=== PATIENT | male | born 1955 | race Caucasian/White ===

== ENCOUNTER 2017-06-24 10:13 | Day surgery (SDC) | payer BC ==
[~2017-06-24 10:13] MED LIST: ACETAMINOPHEN 1,000 MG/100 ML BTL IV ONE; CELECOXIB 100 MG CAPSULE PO ONE; FAMOTIDINE 20MG TABLET PO ONE; MECLIZINE 25 MG TABLET PO ONE; METOCLOPRAMIDE 10 MG TABLET PO ONE; VANCOMYCIN HCL 1,000 MG in 0.9 % SODIUM CHLORIDE 250ML 250 ML IVPB ONE
[2017-06-24] MEDS ORDERED: FENTANYL PF 100MCG/2ML VIAL IV ONE (10:14)
[2017-06-24] MEDS ORDERED: MIDAZOLAM HCL 2MG/2ML VIAL IV ONE (10:14)
[2017-06-24] MEDS ORDERED: BUPIVACAINE LIPOSOME 266MG/20ML VIAL IV ONE (10:14)
[2017-06-24] MEDS ORDERED: VANCOMYCIN HCL 1 GM VIAL IVPB ONE ×2 (10:14)
[2017-06-24] MEDS ORDERED: *PACU ONLY* KETAMINE HCL 10 MG/ML (20ML) VIAL IV ONE (10:14)
[2017-06-24] MEDS ORDERED: PROPOFOL 10 MG/ML VIAL IV ONE (10:14)
[2017-06-24] MEDS ORDERED: BUPIVACAINE 0.5% W/EPI MPF 30 ML VIAL IVP ONE (10:14)
[2017-06-24] MEDS ORDERED: TRANEXAMIC ACID 1,000 MG/10 ML ML IV ONE (10:14)
[2017-06-24 11:09] LABS: ABO GROUP O; ANTIBODY SCREEN NEGATIVE (NEGATIVE); RH TYPE POSITIVE
[2017-06-24] MEDS ORDERED: KETOROLAC 30 MG/ML VIAL IVP PRN ×2 (12:30)
[2017-06-24] MEDS ORDERED: ACETAMINOPHEN W/ CODEINE 300MG/30MG TABLET PO PRN ×2 (12:30)
[2017-06-24] MEDS ORDERED: BISACODYL 10 MG SUPP RC PRN (12:30)
[2017-06-24] MEDS ORDERED: DIPHENHYDRAMINE HCL 25 MG CAPSULE PO PRN (12:30)
[2017-06-24] MEDS ORDERED: PROMETHAZINE HCL 25 MG TABLET PO PRN (12:30)
[2017-06-24] MEDS ORDERED: ONDANSETRON 4 MG ODT TABLET SL PRN (12:30)
[2017-06-24] MEDS ORDERED: TRAMADOL HCL 50 MG TABLET PO PRN ×2 (12:30)
[2017-06-24] MEDS ORDERED: ACETAMINOPHEN W/ CODEINE 300MG/60MG TABLET PO PRN ×2 (12:30)
[2017-06-24] MEDS ORDERED: MAGNESIUM HYDROXIDE 30 ML UDC PO PRN (12:30)
[2017-06-24] MEDS ORDERED: HYDROCODONE/APAP 7.5/325MG TABLET PO PRN ×2 (12:30)
[2017-06-24] MEDS ORDERED: AL HYDROX/MAG HYDROX 30ML UD PO PRN (12:30)
[2017-06-24] MEDS ORDERED: NALOXONE 0.4 MG/1 ML VIAL IVP PRN (12:30)
[2017-06-24] MEDS ORDERED: METOCLOPRAMIDE 10 MG TABLET PO PRN (12:30)
[2017-06-24] MEDS ORDERED: HYDROCODONE/APAP 5/325MG TABLET PO PRN ×2 (12:30)
[2017-06-24] MEDS ORDERED: ACETAMINOPHEN 325 MG TAB PO PRN (12:30)
[2017-06-24] MEDS ORDERED: VANCOMYCIN HCL 500 MG in 0.9 % SODIUM CHLORIDE 100ML 100 ML IVPB SCH (15:30)
[2017-06-24] MEDS ORDERED: DEXTROSE 5 % AND 0.9 % NACL 1,000 ML IV PRN (17:00)
--- NOTE | 2017-06-24 17:40 | Rehab Evaluation ---
Patient Information - Patient Information Diagnosis: Right Total Knee arthroplasty Ordered Treatment: OT Evaluate and Treat Status: Initial Evaluation Surgery: Yes Date of Surgery: 06/24/17 Past Medical/Surgical Hx: PAST MEDICAL/SURGICAL HISTORY Past Surgical History cochlear implant right ear hernia repair right shoulder sx tonsils PMH - Respiratory Hx Respiratory Disorders Yes Hx Sleep Apnea Yes Hx of CPAP No Comment: allergies PMH - Cardiovascular Hx Cardiovascular Disorders Yes Hx Hypertension Yes: on meds great control Exercise Tolerance Good PMH - Neuro Hx Neurological Disorders No PMH - GI Hx Gastrointestinal Disorders No PMH - Hx Genitourinary Disorders No PMH - Endocrine Hx Endocrine Disorders No PMH - Musculoskeletal Hx Musculoskeletal Disorders Yes Hx Arthritis Yes PMH - Psych Hx Psychiatric Problems Yes Hx Anxiety Yes PMH - Hematology/Oncology Hx Hematology/Oncology No Disorders Premorbid Status: Detail (Ind all I/ADL's.) Social History: Detail (Pt. lives in a ranch style home (1 floor, no stairs). Bathroom is equipped with tub/shower entry with shower chair and HH shower head. Pt. has a standard walker. Pt. lives with his , who is an RN and will be able to assist prn. 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 Pt. reported hx of R shd RTC repair 1.5 yrs ago with no functional limitations.) - Coordination Appears within normal limits for therapeutic activities (BUE) - Bed Mobility Independent - Transfers Independent (EOB<>standard walker) - Balance Balance Sitting: Good Balance Standing: Fair - Sensation Intact (BUE) - ADL's/IADL's Detail (PT. demo. ability to doff sock seated EOB; required min. assist to don RLE. Educ. provided to ask for help if needed during recovery process. Educ. provided in AE and where to obtain if needed. Educ. provided in adaptive dressing technques. Pt. verbalized understanding, and described plan/strategy for dressing and bathing.) Therapy Assessment - Therapy Assessment Detail (Pt. demo. knowledge and independence in ADL skills and has a positive support system, with help available if needed. Pt. will have home care when initially arriving at home. In pt. OT services not recommended at this time.) Patient Education - Patient Education Teaching Topic: Equipment Use (storage worker, sock aid) Response: Verbalize Understanding Teaching Method: Discussion, Demonstration Teaching Recipient: Patient Barriers To Learning: None Prognosis - Prognosis Good Plan - Plan Occupational Therapy Plan: D/C from OT services. Pt. was educ. to call rehab dept. if any questions/concerns arise.
--- NOTE | 2017-06-24 17:49 | Rehab Evaluation ---
Patient Information - Patient Information Diagnosis: Right Total Knee arthroplasty Ordered Treatment: PT Evaluate and Treat Status: Initial Evaluation Surgery: Yes Date of Surgery: 06/24/17 Past Medical/Surgical Hx: PAST MEDICAL/SURGICAL HISTORY Past Surgical History cochlear implant right ear hernia repair right shoulder sx tonsils PMH - Respiratory Hx Respiratory Disorders Yes Hx Sleep Apnea Yes Hx of CPAP No Comment: allergies PMH - Cardiovascular Hx Cardiovascular Disorders Yes Hx Hypertension Yes: on meds great control Exercise Tolerance Good PMH - Neuro Hx Neurological Disorders No PMH - GI Hx Gastrointestinal Disorders No PMH - Hx Genitourinary Disorders No PMH - Endocrine Hx Endocrine Disorders No PMH - Musculoskeletal Hx Musculoskeletal Disorders Yes Hx Arthritis Yes PMH - Psych Hx Psychiatric Problems Yes Hx Anxiety Yes PMH - Hematology/Oncology Hx Hematology/Oncology No Disorders Premorbid Status: Detail (Ind all I/ADL's.) Social History: Detail (Pt. lives in a ranch style home (1 floor, no stairs). Bathroom is equipped with tub/shower entry with shower chair and HH shower head. Pt. has a standard walker. Pt. lives with his , who is an RN and will be able to assist prn. 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 RLE hip and ankle AROM were WNL, knee flexion was 90 degrees, extension 0 .) - Strength/Tone Not within normal limits (The patient's L LE strength was 5/5. R LE strength was not tested secondary to status post surgery , however strength was functional ( The patient was able to complete a SLR).) - Coordination Appears within normal limits for therapeutic activities - Bed Mobility Independent (The patient was independent with supine to and from sit transfer and scooting up in bed.) - Transfers Independent (Independent with sit to and from stand transfer.) - Balance Balance Sitting: Good Balance Standing: Good - Sensation Intact - Gait Detail (The patient ambulated with standard walker WBAT on the R LE, independently. The patient required occasional verbal cues for proper walker placement. The patient ambulated on 3 steps with folded walker and railing WBAT on the R LE with supervision for safety.) Therapy Assessment - Therapy Assessment Detail (The patient was independent with all mobility, ambulation on levels and stairs and transfers. The patient has met all his inpatient PT goals.) Patient Education - Patient Education Teaching Topic: Exercise/Activity (The patient recalled all of his HEP including : gluteal sets, quad sets, hamstring sets, SLR, seated heel slides, ankle pumps all x 5 reps.) Response: Return Demonstration Teaching Method: Demonstration Teaching Recipient: Patient Barriers To Learning: None Problem List - Problem List Physical Therapy Problem List: Detail (The patient has decreased R knee AROM and strength as to be expected following surgery.) Goals - Goals Physical Therapy Goals: The patient has met all PT inpatient goals: independent with ambulation on levels and stairs, transfers and bed mobility. Prognosis - Prognosis Good Plan - Plan Physical Therapy Plan: The patient has completed all inpatient PT goals and is to receive Home Health services.
--- NOTE | 2017-06-24 21:22 | Operative Note ---
DATE OF SURGERY: 06/24/17 PREOPERATIVE DIAGNOSIS: End-stage right knee arthrosis. POSTOPERATIVE DIAGNOSIS: End-stage right knee arthrosis. PROCEDURE: Right total knee arthroplasty. SURGEON: Jonny Rao MD ANESTHESIA: Spinal. Mónica Suarez CRNA COMPLICATIONS: None. BLOOD LOSS: Minimal. OPERATIVE FINDINGS: Severe [id number] varus knee arthrosis. COMPONENTS PLACED: 2 gm Vancomycin cement, [employer] II Oxinium size 7 femoral component, size 7 tibial base plate, a 13 mm thick tibial poly insert, and a 35 mm cemented patellar component. INDICATION FOR OPERATION: This is a 62-year-old male who has had persistent pain and dysfunction in his knees for several years. He failed nonoperative treatment and is scheduled for outpatient total knee arthroplasty. I explained the risks and benefits in detail for the diagnosis and procedures including but not limited to infection, nerve injury, vessel injury, persistent pain and stiffness, numbness and tingling in his knee, periprosthetic fracture, need for resection arthroplasty should the components become infected or loosened, nerve injury, blood clot, need for anticoagulation to prevent blood clots, and risks associated with these medications, need for further procedures and all of his questions were answered and rehab and healing courses were outlined and he agreed to the procedure. PROCEDURE: The patient was brought into the O.R. and placed in the supine position. Preoperative antibiotics were given prior to surgery. Spinal anesthesia induced and his right lower extremity was prepped and draped in sterile fashion. The right knee was prepped again with ChloraPrep after it was draped. Intraoperative time-out was performed. Next, the leg was exsanguinated with an Esmarch. The knee was flexed and the tourniquet inflated to 250 mmHg of pressure. Next, the skin and subcutaneous tissues were dissected down, incised the capsule medially around the medial border of the patella to the tibial tubercle , incised the vastus medialis in line with its fibers in the mid vastus approach. Partially resected the retropatellar fat pad, elevated the capsule subperiosteallly medially in the severe varus knee and then flexed the knee, brought it two bent Hohmann's. He had severe [id number] medial compartment arthrosis. We drilled and intercondylar drill hole and inserted the intramedullary guide susy with a six-degree cutting block, aligned the distal femoral condyles, and then pinned it in place with two pins in the +2 cutting position. Next, I cut the distal femoral condyle. Next, we placed the sizing jig on the distal femoral condyle, sized it to be right on size 7 and through the previously placed pin holes, we placed the five- in-one cutting jig and dialed in the anterior cut so it would come out flush without notching. We cut that cut. It was a good cut. We then pinned the cutting jig and cut the remainder of the chamfer cuts in the usual fashion. Next, we then inserted the trial component. It fit nicely. We then pinned it in place and started the femoral resection collet and reamed out and box osteotomed the cruciate bone block. Next, attention was turned to the tibia. We seated the spikes in the intertubercular groove two fingerbreadths distal to the anterior tibial cortex. We referenced for a 7 mm cut of the higher lateral plateau. We pinned the cutting jig in position and checked our resection level. It was just cutting the medial eroded tibial cortex on our tibial plateau nicely. We then pinned it in place, rechecked the alignment of the cuts with a drop susy centered on the tibial anatomic access, cross-pinned it to the cutting jig completing its fixation and then cut the tibia. Next, we removed the osteophytes off the posterior femoral condyles, checked flexion and extension gaps. He had symmetric flexion and extension gaps with a 9 mm thick poly insert. This allowed 2 to 3 mm of varus/valgus laxity in flexion and extension. After we released significant medially, we sized up to a 13 mm insert and overall alignment of cuts in extension was in intact valgus orientation with the alignment susy centered on the hip joint and ankle joint. Next, we took the knee into flexion. We sized the tibial baseplate to a 7. We replaced all the trial components, set the rotation of the tibial baseplate again in extension using the alignment susy to center the hip joint and ankle joint. W marked with electrocautery mckee on the anterior tibial cortex off the laer mckee on the tibial baseplate. Attention was turned to the patella. We measured the patella to be 25 mm. We set the cutting jig at 16 mm to allow for a 9 mm thick poly insert. We cut the patella. It was right on 16. We chamfered off the lateral patellar facet, sized to be 35 and medialized as much as possible, drilled three peg holes. We placed the trial patellar component and then mixed cement. The patella tracked nicely hands-free, had full extension and flexion to 140 degrees and again, symmetrical flexion and extension gaps. Next, we took the knee into flexion. We set the tibial baseplate over the previously placed electrocautery mckee, pinned it in place and reamed out and keel-punched the keel hole. Next, we placed a bone plug in the femoral canal hole. Next, we then placed the drill bit in the tibial keel hole. Changed gloves, brought in clean sheet, copiously irrigated the bony surfaces with pulse lavage and antibiotic solution. We pre-coated both surfaces and impacted down the tibial component and then the femoral component, and then clamped down the patellar component and held the knee in extension until the cement hardened. Once that happened, we then took the knee into flexion, distracted the knee with hook and sponge, removed the trial poly insert. I removed any excess cement off the edge of the components and then we irrigated copiously. Then we injected thoroughly the capsule posterior, medial, and lateral, the periosteum medial and lateral, and vastus medialis with our mixture of 0.5% Marcaine with Epinephrine, 2 gm Tranexamic acid, and Exparel throughout the entire knee with several sticks. Infiltrating. Next, we then impacted down the real tibial poly insert, verified it was interlocked medially and laterally with final range of motion and stability the same. We irrigated again. We closed the capsule in flexion with a running #2 Quill suture in the vastus split. We irrigated again and then closed the skin deep with 2-0 Vicryl and ZipLine used to close the skin. The patient tolerated the procedure well. No intraoperative complications. Sponge, needle, and blade counts correct. Recovery Room stable. Can be discharged as an outpatient and he will follow-up in two weeks. cc: Dr. Jake Joaquin JOB NUMBER: [id number] MTDD
[2017-06-24] MEDS ORDERED: DOCUSATE SODIUM 100 MG CAPSULE PO SCH (22:00)
== END 2017-06-24 19:35 | disposition home or self-care (01) ==
LOC: SUR 10:13 → MEDSURG 15:15 → SUR 19:35
PROVIDERS: ATTEND Orthopaedic Surgery
DX: M17.11 Unilateral primary osteoarthritis, right knee (principal); I10 Essential (primary) hypertension; Z72.0 Tobacco use
CPT/HCPCS: 27447; 01402; 86900; 86901; 86850; J1885; J3370; J3010; C9290; J3490; 97165; J7050

== ENCOUNTER 2017-08-19 11:04 | Inpatient (IN) | payer BC ==
[~2017-08-19 11:04] MED LIST changes: -VANCOMYCIN HCL 1,000 MG in 0.9 % SODIUM CHLORIDE 250ML 250 ML IVPB ONE; +VANCOMYCIN HCL 1,000 MG in DEXTROSE 5 % IN WATER 250 ML IVPB ONE
[2017-08-19] MEDS ORDERED: TRAMADOL HCL 50 MG TABLET PO PRN ×3 (11:59→15:48)
[2017-08-19] MEDS ORDERED: MAGNESIUM HYDROXIDE 30 ML UDC PO PRN ×2 (11:59→15:48)
[2017-08-19] MEDS ORDERED: METOCLOPRAMIDE 10 MG TABLET PO PRN (11:59)
[2017-08-19] MEDS ORDERED: ACETAMINOPHEN W/ CODEINE 300MG/30MG TABLET PO PRN ×4 (11:59→15:48)
[2017-08-19] MEDS ORDERED: AL HYDROX/MAG HYDROX 30ML UD PO PRN ×2 (11:59→15:48)
[2017-08-19] MEDS ORDERED: ACETAMINOPHEN 325 MG TAB PO PRN ×2 (11:59→15:48)
[2017-08-19] MEDS ORDERED: DEXTROSE 5 % AND 0.9 % NACL 1,000 ML IV PRN ×2 (11:59→15:48)
[2017-08-19] MEDS ORDERED: HYDROCODONE/APAP 7.5/325MG TABLET PO PRN ×3 (11:59→15:48)
[2017-08-19] MEDS ORDERED: ACETAMINOPHEN W/ CODEINE 300MG/60MG TABLET PO PRN ×4 (11:59→15:48)
[2017-08-19] MEDS ORDERED: PROMETHAZINE HCL 25 MG TABLET PO PRN (11:59)
[2017-08-19] MEDS ORDERED: KETOROLAC 30 MG/ML VIAL IVP PRN ×4 (11:59→15:48)
[2017-08-19] MEDS ORDERED: ONDANSETRON 4 MG ODT TABLET SL PRN (11:59)
[2017-08-19] MEDS ORDERED: BISACODYL 10 MG SUPP RC PRN ×2 (11:59→15:48)
[2017-08-19] MEDS ORDERED: NALOXONE 0.4 MG/1 ML VIAL IVP PRN ×2 (11:59→15:48)
[2017-08-19] MEDS ORDERED: DIPHENHYDRAMINE HCL 25 MG CAPSULE PO PRN (11:59)
[2017-08-19] MEDS ORDERED: HYDROCODONE/APAP 5/325MG TABLET PO PRN ×4 (11:59→15:48)
[2017-08-19] MEDS ORDERED: VANCOMYCIN HCL 500 MG in 0.9 % SODIUM CHLORIDE 100ML 100 ML IVPB SCH (12:00)
[2017-08-19] MEDS ORDERED: VANCOMYCIN HCL 1 GM VIAL IVPB ONE (13:00)
[2017-08-19] MEDS ORDERED: TRANEXAMIC ACID 1,000 MG/10 ML ML IV ONE (13:00)
[2017-08-19] MEDS ORDERED: BUPIVACAINE 0.75% W/EPI MPF 30ML VIAL IVP ONE (13:00)
[2017-08-19] MEDS ORDERED: BUPIVACAINE LIPOSOME 266MG/20ML VIAL IV ONE (13:00)
[2017-08-19] MEDS ORDERED: ONDANSETRON HCL IV 4 MG/2 ML VIAL IVP PRN (15:48)
[2017-08-19] MEDS ORDERED: MORPHINE SULFATE 5 MG/ML PFS IVP PRN ×4 (15:48)
[2017-08-19] MEDS ORDERED: METOCLOPRAMIDE HCL 10 MG/2 ML VIAL IVP PRN (15:48)
[2017-08-19] MEDS ORDERED: ZOLPIDEM TARTRATE 5 MG TABLET PO PRN (15:48)
[2017-08-19] MEDS ORDERED: PROMETHAZINE HCL 12.5 MG in 0.9 % SODIUM CHLORIDE 100ML 50 ML IVPB PRN (15:48)
[2017-08-19] MEDS: HYDROCODONE/APAP 7.5/325MG TABLET PO PRN ×2 (17:26→21:29)
[2017-08-19] MEDS: FERROUS SULFATE 325 MG TAB PO SCH (21:29)
[2017-08-19] MEDS: DOCUSATE SODIUM 100 MG CAPSULE PO SCH (21:29)
[2017-08-19] MEDS ORDERED: DOCUSATE SODIUM 100 MG CAPSULE PO SCH (22:00)
[2017-08-20] MEDS: VANCOMYCIN HCL 1,000 MG in DEXTROSE 5 % IN WATER 250 ML IVPB SCH ×4 (01:01→14:30)
[2017-08-20] MEDS: HYDROCODONE/APAP 7.5/325MG TABLET PO PRN ×5 (02:56→18:45)
[2017-08-20] MEDS: DIPHENHYDRAMINE HCL 25 MG CAPSULE PO PRN ×2 (06:32→13:31)
[2017-08-20 06:39] LABS: HEMATOCRIT 36.9 % (42.0-52.0); HEMOGLOBIN 11.6 gm/dl (14.0-18.0)
[2017-08-20] MEDS: HYDROMORPHONE HCL 1 MG/ML SYRINGE IM PRN ×2 (08:37→09:23)
--- NOTE | 2017-08-20 09:56 | Rehab Evaluation ---
Patient Information - Patient Information Diagnosis: L TKA Ordered Treatment: PT Evaluate and Treat Status: Initial Evaluation Surgery: Yes Date of Surgery: 08/19/17 History: Detail (The patient underwent a R TKA 6 weeks ago.) Past Medical/Surgical Hx: PAST MEDICAL/SURGICAL HISTORY Surgery to Affected Area? No Recent Surgery? Past Surgical History cochlear implant hernia repair right shoulder sx PMH - Respiratory Hx Respiratory Disorders Yes Hx Sleep Apnea Yes Hx of CPAP No Comment: allergies PMH - Cardiovascular Hx Cardiovascular Disorders Yes Hx Hypertension Yes: on meds great control PMH - Neuro Hx Neurological Disorders No PMH - GI Hx Gastrointestinal Disorders No PMH - Hx Genitourinary Disorders No PMH - Endocrine Hx Endocrine Disorders No PMH - Musculoskeletal Hx Musculoskeletal Disorders Yes Hx Arthritis Yes PMH - Psych Hx Psychiatric Problems Yes Hx Anxiety Yes PMH - Hematology/Oncology Hx Hematology/Oncology No Disorders Premorbid Status: Detail (Prior to surgery the patient was independent with ambulation without device.) Social History: Detail (The patient lives in a one story home with with no stairs at the enterance. The patient's bathroom is equipped with a traditional tub with a tub seat, and standard toilet. The patient has a wheeled walker and a standard walker and a standard cane.) Precautions: [place], Other (WBAT on the L LE.) - Time With Patient Total Time Spent With Patient (Min): 30 Treatment Procedures: Detail (Initial Evaluation , gait training.) Subjective Information - Subjective Information Per Patient (The patient complained of L knee pain but did not rate it using the 0-10 pain scale.) Objective Data - Mental Status Patient Orientation: Oriented x3 - Visual Perception Appears within normal limits for therapeutic activities - ROM Not within normal limits (The patient's R LE is WNL, L hip and ankle AROM is WNL , knee flexion was to 80 degrees, extension aprox. 0 degrees.) - Strength/Tone Within normal limits (The patient's bilateral LE strength is WFL.) - Bed Mobility Independent (The patient is Independent with supine to sit and scooting up in bed.) - Transfers Independent (The patient is independent with sit to and from stand and toilet transfer.) - Balance Balance Sitting: Good Balance Standing: Good - Sensation Intact - Gait Detail (The patient ambulated independently with standard walker WBAT L LE a distance of 140 feet x 1. The patient refused ambulation on stairs.) Therapy Assessment - Therapy Assessment Detail (The patient was independent with all bed mobility , transfers and gait training. The patient was independent with HEP.) Patient Education - Patient Education Teaching Topic: Exercise/Activity (The patient was able to recite all TKA exercises.) Response: Return Demonstration Teaching Method: Handout Teaching Recipient: Patient Barriers To Learning: Age Related Problem List - Problem List Physical Therapy Problem List: Detail (Decreased L knee AROM and strength) Goals - Goals Physical Therapy Goals: All inpatient PT goals have been met. The patient is independent with transfers, ambulation and HEP. Prognosis - Prognosis Good Plan - Plan Physical Therapy Plan: The patient is discharged from inpatient PT due to all PT goals are met. The patient is to receive Home PT.
--- NOTE | 2017-08-20 10:28 | Rehab Evaluation ---
Patient Information - Patient Information Diagnosis: L TKA Ordered Treatment: OT Evaluate and Treat Status: Initial Evaluation Surgery: Yes (left TKA) Date of Surgery: 08/19/17 History: Detail (The patient underwent a R TKA 6 weeks ago.) Past Medical/Surgical Hx: PAST MEDICAL/SURGICAL HISTORY Surgery to Affected Area? No Recent Surgery? Past Surgical History cochlear implant hernia repair right shoulder sx PMH - Respiratory Hx Respiratory Disorders Yes Hx Sleep Apnea Yes Hx of CPAP No Comment: allergies PMH - Cardiovascular Hx Cardiovascular Disorders Yes Hx Hypertension Yes: on meds great control PMH - Neuro Hx Neurological Disorders No PMH - GI Hx Gastrointestinal Disorders No PMH - Hx Genitourinary Disorders No PMH - Endocrine Hx Endocrine Disorders No PMH - Musculoskeletal Hx Musculoskeletal Disorders Yes Hx Arthritis Yes PMH - Psych Hx Psychiatric Problems Yes Hx Anxiety Yes PMH - Hematology/Oncology Hx Hematology/Oncology No Disorders Premorbid Status: Detail (Prior to surgery the patient was independent with ambulation without device.) Social History: Detail (The patient lives in a one story home with with no stairs at the entrance. The patient's bathroom is equipped with a tub/shower combination with a tub seat and hand held shower, and standard height toilet. The patient has a wheeled walker, a standard walker, a commode, an extended tub bench and a standard cane. He is Ind with laundry and he and his share home mgmt and meal prep.) Precautions: [place], Other (WBAT on the L LE.) - Time With Patient Total Time Spent With Patient (Min): 30 Treatment Procedures: Detail (OT eval low complexity) Subjective Information - Subjective Information Per Patient Objective Data - Pain Pain Present: Yes (5/10) - Mental Status Patient Orientation: Oriented x3 - Visual Perception Appears within normal limits for therapeutic activities (Pt wears glasses) - ROM Within normal limits (Joenl UE AROM WNL) - Strength/Tone Within normal limits (Jonel UE strength WNL) - Coordination Appears within normal limits for therapeutic activities - Transfers Independent (Pt is Ind with sit to stand from EOB) - Balance Balance Sitting: Good Balance Standing: Good - Sensation Intact - Gait Detail (Pt ambulating in the room with 2 wheeled walker Indly.) - ADL's/IADL's Detail (Pt verbalized modified dressing technique. He does not feel the need to complete dressing activity as he has just had his other knee replaced and he understands the technique.) Therapy Assessment - Therapy Assessment Detail (Pt verbalizes understanding of modified dressing technique and he feels confident with ADLs after discharge.) Problem List - Problem List Physical Therapy Problem List: Detail (Decreased L knee AROM and strength) Occupational Therapy Problem List: Detail (No current OT problems identified.) Goals - Goals Physical Therapy Goals: All inpatient PT goals have been met. The patient is independent with transfers, ambulation and HEP. Occupational Therapy Goals: No current OT goals identified. Prognosis - Prognosis Good Plan - Plan Physical Therapy Plan: The patient is discharged from inpatient PT due to all PT goals are met. The patient is to receive Home PT. Occupational Therapy Plan: No further IP OT recommended. Thank you for this referral.
[2017-08-20] MEDS ORDERED: BUPIVACAINE 0.75% W/EPI MPF 30ML VIAL IVP ONE (10:33)
[2017-08-20] MEDS ORDERED: TRANEXAMIC ACID 1,000 MG/10 ML ML IV ONE (10:33)
[2017-08-20] MEDS ORDERED: VANCOMYCIN HCL 1 GM VIAL IVPB ONE (10:33)
[2017-08-20] MEDS: CELECOXIB 100 MG CAPSULE PO SCH (10:38)
[2017-08-20] MEDS: DOCUSATE SODIUM 100 MG CAPSULE PO SCH ×2 (10:38→22:18)
[2017-08-20] MEDS: FERROUS SULFATE 325 MG TAB PO SCH ×2 (10:38→22:18)
[2017-08-20] MEDS: RIVAROXABAN 10 MG TABLET PO SCH (10:38)
[2017-08-20] MEDS: PATIENT OWN MED: CETIRIZINE 10 MG PO SCH (10:42)
[2017-08-20] MEDS: PATIENT OWN MED: ESCITALOPRAM 10 MG PO SCH (10:42)
[2017-08-20] MEDS: PATIENT OWN MED: LISINOPRIL 10 MG PO SCH (10:42)
[2017-08-20] MEDS ORDERED: MIDAZOLAM HCL 2MG/2ML VIAL IV ONE (10:48)
[2017-08-20] MEDS ORDERED: KETOROLAC 30 MG/ML VIAL IVP ONE (10:48)
[2017-08-20] MEDS ORDERED: FENTANYL PF 100MCG/2ML VIAL IV ONE (10:48)
[2017-08-20] MEDS ORDERED: HYDROMORPHONE HCL 2 MG/ML VIAL IV ONE (10:48)
[2017-08-20] MEDS ORDERED: PROPOFOL 10 MG/ML VIAL IV ONE (10:48)
[2017-08-20] MEDS: HYDROMORPHONE HCL 2 MG/ML VIAL IM PRN ×2 (12:43→17:57)
--- NOTE | 2017-08-20 13:10 | Operative Note ---
DATE OF SURGERY: 08/19/2017. PREOPERATIVE DIAGNOSIS: Left knee end-stage arthrosis. POSTOPERATIVE DIAGNOSIS: Left knee end-stage arthrosis. OPERATION: Left total knee arthroplasty. Surgeon: Jonny Roa MD. Anesthesia: Spinal. Anesthesia Provider: SONJA Sales. COMPLICATIONS: None. Estimated Blood Loss: Minimal. TOURNIQUET TIME: Approximately 60 minutes. OPERATIVE FINDINGS: [id number] medial compartment arthrosis. COMPONENTS PLACED: A [employer] II Oxinium total knee arthroplasty system, size 7 femoral component, size 7 tibial baseplate, an 11 mm thick tibial poly insert, a 35 mm cemented patellar component, 2 g vancomycin. INDICATIONS FOR OPERATION: This is a 62-year-old male who has end-stage left knee arthrosis. Failed nonoperative treatments. Scheduled for a left total knee arthroplasty. I explained to him all risks and benefits in detail for the diagnosis and procedures including, but not limited to, infection, nerve injury, vessel injury, persistent pain, numbness, tingling, periprosthetic fracture, need for resection arthroplasty, components infected or loosened, blood clot, bone length discrepancy, need for anticoagulation to prevent blood clots, risks associated with medication, need for other procedures, and all of his questions were clearly answered, his course was outlined, and he agreed to proceed. PROCEDURE: The patient brought to the OR, placed in the supine position, prepped for surgery. Spinal anesthesia was induced. The left lower extremity and knee prepped and draped in sterile fashion. Prepped using Chloraprep, sterilely draped, and at that time, timeout was performed. The leg was exsanguinated with Esmarch. The knee was flexed, tourniquet inflated to 250 mmHg pressure. Next, the anterior skin incision was made over the knee. Skin and subcutaneous tissues dissected down, incised the capsule medially along the medial border of the patella to the tibial tubercle. Incised the vastus medialis in line with its fibers in a mid vastus approach. Everted the patella, partially resected the suprapatellar fat pad, elevated the capsule subperiosteally medially, and flexed the knee, resected the ACL, some of the menisci. He had [id number] medial compartment arthrosis. Drilled intracondylar drill hole. Inserted intramedullary guide susy, 6 degree cutting block. Aligned distal femoral condyles and pinned it in place in the +2 mm position. Next, cut the distal femoral condyles. Next, placed a sizing jig to his femoral condyle, sized to be around size 7, as was his contralateral knee. We inserted the cutting jig, 5-in-1 cutting jig, dialed in the anterior cut so it would come out flush to the anterior cortex or slightly above it without notching. We cut that cut. It was good cut. Then pinned the cutting jig in and cut the remainder of the forward chamfer cuts in usual fashion. Next, placed the size 7 trial component, seated it. It set nicely. Centered it, pinned it, removed osteophytes off the periphery, and then inserted a femoral resection collar, it reamed out, and box osteotome cleared it. Attention turned to the tibia. We seated the spikes in the anterior tubercular groove off the central third of the tibial tubercle, 2 fingerbreadths distally in reference for a 7 mm cut off the higher lateral plateau. We pinned the cutting jig provisionally until anterior and posterior pins were rechecked in alignment of the cutting jig using a drop susy setting on tibia at the anatomic axis and cross-pinned the cutting jig, completing is fixation, and cut the tibia. Next, we removed osteophytes off the posterior femoral condyle using curved osteotome. Checked flexion and extension gaps, and sized up and released medially the deep MCL to lengthen it slightly subperiosteally in posteromedial knee, and we sized up to size 11 mm block insert, allowing for 2-3 mm of varus and valgus laxity in flexion and extension. Overall alignment cuts in extension with the anatomic valgus orientation with the alignment susy centered on the hip joint and ankle joint. Next, took the knee in flexion, sized the tibial baseplate to be size 7. Replaced all trial components, set the rotation of the tibial baseplate in extension using alignment susy set on hip joint and ankle joint. Marked with electrocautery mckee on the anterior tibial cortex off the laser mckee on the tibial baseplate. Attention turned to the patella. Measured patella, set the cutting jig to allow for a 9 mm thick poly insert, cut the patella, remeasured the patella, and it was right on size for 9 mm thick poly insert. We sized it to be 35 mm, medialized as much as possible, and drilled the 3 peg holes[address] Placed the trial component, mixed cement, and did a trial range of motion. Patellar tracked nicely and freely in full extension, flexion to 134 degrees, again symmetric flexion-extension gaps. Next, took the knee in flexion. Stated the tibial baseplate with the previously placed electrocautery mckee, pinned it in place, and drilled out and keel punched keel hole. Next, we placed a bone plug in femoral canal hole. Irrigated copiously all bony surfaces with pulse lavage and antibiotic solution. Placed the keel hole drill in that hole to prevent cement extrusion and then changed gloves, providing clean sheets. Copiously irrigated with pulse lavage and antibiotic solution. Precut bolsters were packed in the tibial component, and then the femoral component, and placed a trial tibial poly liner and held the knee in extension and clamped down the patellar component to let the cement harden, and removed excess cement. Next, we took the knee in flexion, distracted the knee with bone hook and sponge, irrigated copiously, removed any excess cement off the edges of the components. Next, we injected multiple sticks of our 0.5% Marcaine with epi, 2 g tranexamic acid, Exparel mixture deep in the capsule, medially, laterally, medial and lateral femoral periosteum, tibial periosteum, and vastus medialis, subcutaneous regions. Next, we impacted down the real tibial poly insert, verified it was interlocked. Final range of motion and stability still the same. Irrigated the wound, closed the knee with the knee in flexion using the #2 Quill, the vastus split and the capsule. Also, after closed capsule, then irrigated. Closed skin deep with 2-0 Vicryl, and the skin was approximated with shania and the skin was injected. Sterile dressing applied. David wrap. Tolerated the procedure well. No intraoperative complications. Sponge and needle counts correct. To recovery room stable and intact for discharge to the floor. Will be discharged home tomorrow. Follow up in 2 weeks. HOME
[2017-08-20] MEDS ORDERED: CLINDAMYCIN 600MG/50ML PREMIX 600 MG/50 ML BAG IVPB ONE (14:00)
[2017-08-20] MEDS: TRAMADOL HCL 50 MG TABLET PO PRN (22:17)
[2017-08-21] MEDS: HYDROCODONE/APAP 7.5/325MG TABLET PO PRN ×2 (01:00→08:02)
[2017-08-21] MEDS: TRAMADOL HCL 50 MG TABLET PO PRN ×2 (04:25→12:38)
[2017-08-21 06:55] LABS: HEMATOCRIT 34.5 % (42.0-52.0); HEMOGLOBIN 11.1 gm/dl (14.0-18.0)
[2017-08-21] MEDS: FERROUS SULFATE 325 MG TAB PO SCH (09:22)
[2017-08-21] MEDS: DOCUSATE SODIUM 100 MG CAPSULE PO SCH (09:22)
[2017-08-21] MEDS: RIVAROXABAN 10 MG TABLET PO SCH (09:22)
[2017-08-21] MEDS: CELECOXIB 100 MG CAPSULE PO SCH (09:22)
[2017-08-21] MEDS: PATIENT OWN MED: CETIRIZINE 10 MG PO SCH (10:42)
[2017-08-21] MEDS: PATIENT OWN MED: LISINOPRIL 10 MG PO SCH (10:42)
[2017-08-21] MEDS: PATIENT OWN MED: ESCITALOPRAM 10 MG PO SCH (10:42)
== END 2017-08-21 15:29 | disposition home health service (06) | DRG 470 ==
LOC: MEDSURG 11:04 → EDSTATUS 13:00
PROVIDERS: ADMIT Orthopaedic Surgery; ATTEND Orthopaedic Surgery
PROC: 0SRD069 Replacement of Left Knee Joint with Oxidized Zirconium on Polyethylene Synthetic Substitute, Cemented, Open Approach (ICD-10-PCS; principal; 2017-08-19 13:00)
DX: M17.12 Unilateral primary osteoarthritis, left knee (principal); I10 Essential (primary) hypertension
CPT/HCPCS: 85014; 85018; 94760; 97165; J1170; J1885; J3490; J7060